=== PATIENT | female | born 1970 | race Caucasian/White ===

== ENCOUNTER 2022-01-24 09:38 | Emergency (ER) | payer OTHER, SELFPAY ==
[2022-01-24 09:45] VITALS: BP 119/72; PULSE 72; RESP 14; TEMP 36.1; O2SAT 98
[2022-01-24 09:58] VITALS: BP 119/72; PULSE 72; RESP 14; TEMP 36.1; O2SAT 98
--- NOTE | 2022-01-24 10:04 | ED.GENADULT ---
HPI - General Adult General Chief complaint: Urogenital-Female Stated complaint: Urinary Problem Source: patient Mode of arrival: ambulatory Limitations: no limitations History of Present Illness HPI narrative: Patient presents for evaluation of urinary symptoms for the last 2 days. Symptoms include dysuria, urinary frequency, urgency, hematuria, suprapubic pain and left flank pain. She states left flank pain that is mild and feels like a dull ache. She had some nausea but no vomiting. No objective fever or chills but did have the sensation that she felt warm two days ago. She has been taking Azo OTC. No additional complaints or concerns. Related Data Home Medications Medication Instructions Recorded Confirmed ramipril 5 mg capsule (Altace) 5 mg PO DAILY 09/08/20 01/24/22 spironolactone 100 mg tablet 100 mg PO DAILY 09/08/20 01/24/22 (Aldactone) metoprolol succinate 25 mg 12.5 mg PO DAILY 01/24/22 01/24/22 tablet,extended release 24 hr Allergies Allergy/AdvReac Type Severity Reaction Status Date / Time codeine Allergy Unknown sensitivity Verified 01/24/22 09:56 erythromycin base Allergy Unknown Rash Verified 01/24/22 09:56 Review of Systems Review of Systems: CONSTITUTIONAL: Denies fever, chills, or sweats. EYES: Denies visual changes, redness, or discharge. ENT: Denies rhinorrhea, congestion, sore throat, or otalgia. CARDIOVASCULAR: Denies chest pain, palpitations, or edema. RESPIRATORY: Denies cough or dyspnea. GASTROINTESTINAL: Reports suprapubic pain and recent nausea. Denies vomiting, or diarrhea. GENITOURINARY: Reports dysuria, hematuria, urinary frequency, and urgency BACK: Reports left flank pain SKIN: Denies rash or itching. MUSCULOSKELETAL: Denies back pain, joint pain, or myalgia. NEUROLOGIC: Denies headache, numbness, dizziness, or weakness. PSYCHIATRIC: Denies anxiety or depression. [facility] Past Medical History Medical History Interstitial cystitis Family History Family History Father Diabetes mellitus Sibling Depression Mother Alzheimer disease Other Family history of cardiovascular disease Family history of malignant neoplasm of breast Hypertension Social History Social History Alcohol intake: current Living arrangements: with family Gender identity (if verbalized by the patient): Female Spiritual care concerns: No Exam Narrative: GENERAL: Well-appearing, well-nourished, and in no acute distress. HEAD: Normocephalic, atraumatic. EYES: PERRLA and EOMI. ENT: Nares clear, no rhinorrhea or epistaxis. Mucous membranes moist. Oropharynx without tonsillar hypertrophy exudate or other lesions. Bilateral TMs pearly rodriguez nonbulging NECK: Supple. No adenopathy or masses. No carotid bruits or JVD CHEST: Clear to auscultation. No respiratory distress. No wheezes rales or rhonchi HEART: Regular rate and rhythm. No murmur heard. Normal peripheral pulses. ABDOMEN: Soft, nontender, nondistended, normal active bowel sounds. BACK: No CVA tenderness EXTREMITIES: Normal range of motion. No edema. SKIN: Warm, dry, no rash. NEURO: No focal deficits. Alert and oriented x3. PSYCH: Normal mood and affect. Course Course Emergency Course: This is a 51-year-old female with interstitial cystitis who presented for evaluation of urinary symptoms. She is nitrite positive. Will tx with macrobid. Will send urine for culture. She should follow up outpatient for further evaluation and treatment and return for worsening symptoms. Pt in agreement with plan of care. Level of Care: Express Care Visit Vital Signs Vital signs: Vital Signs Temperature 36.1 C L 01/24/22 09:45 Pulse Rate 72 01/24/22 09:45 Respiratory Rate 14 01/24/22 09:45 Blood Pressure 119/72 01/24/22 09:45 Pulse Oximetry 98 08/1
== END 2022-01-24 10:08 | disposition home or self-care (01) ==
PROVIDERS: Emergency Provider Nurse Practitioner; PCP Family Medicine
DX: N39.0 Urinary tract infection, site not specified (principal)
CPT/HCPCS: 81003; 87077; 87086; 87186; 99213; G0463

== ENCOUNTER 2022-04-11 11:48 | Emergency (ER) | payer OTHER, SELFPAY ==
[2022-04-11 11:55] VITALS: BP 104/60; PULSE 76; RESP 16; TEMP 36.7; O2SAT 98
--- NOTE | 2022-04-11 12:21 | ED.FEMALEGU ---
HPI - Female Genitourinary General Chief complaint: Urogenital-Female Stated complaint: Urinary Problem Time Seen by Provider: 04/11/22 12:10 Source: patient, RN notes reviewed and old records reviewed Mode of arrival: ambulatory Limitations: no limitations History of Present Illness HPI Narrative: 51-year-old female who presents to Express Care with pain with urination, frequency and urgency with painful since . Patient reports that she had some spasm type of sensation in her back her lower perineal area. Patient has taken azo with last dose around midnight last night Patient has not had any fevers, chills or sweats, has voiced some nausea with no diarrhea or vomiting, Patient denies any sharp pain in her back or over bladder regions. Patient reports that she has increased her water intake. Patient denies any concern for STD exposure denies any vaginal discharge or itching. MD elicited complaint: dysuria Pertinent past history: interstitial cystits Onset (ago): day(s) (4) Location of symptoms: perineum, suprapubic and low back Related Data Home Medications Medication Instructions Recorded Confirmed ramipril 5 mg capsule (Altace) 5 mg PO DAILY 09/08/20 04/11/22 spironolactone 100 mg tablet 100 mg PO DAILY 09/08/20 04/11/22 (Aldactone) metoprolol succinate 25 mg 12.5 mg PO DAILY 01/24/22 04/11/22 tablet,extended release 24 hr minocycline 100 mg capsule 100 mg PO DAILY 04/11/22 04/11/22 Allergies Allergy/AdvReac Type Severity Reaction Status Date / Time codeine Allergy Unknown sensitivity Verified 04/11/22 11:59 erythromycin base Allergy Unknown Rash Verified 04/11/22 11:59 Review of Systems Review of Systems: CONSTITUTIONAL: Denies fever, chills, or sweats. CARDIOVASCULAR: Denies chest pain, palpitations, or edema. RESPIRATORY: Denies cough or dyspnea. GASTROINTESTINAL: Denies abdominal pain, nausea, vomiting, or diarrhea. GENITOURINARY: Reports dysuria, frequency, urgency. Denies flank pain or hematuria. SKIN: Denies rash or itching. MUSCULOSKELETAL: Denies back pain or myalgia. Denies CVA tenderness reports some lower back pain NEUROLOGIC: Denies headache All systems reviewed & are unremarkable except as noted in HPI and below PMFSH Past Medical History Medical History Interstitial cystitis Family History Family History Father Diabetes mellitus Sibling Depression Mother Alzheimer disease Other Family history of cardiovascular disease Family history of malignant neoplasm of breast Hypertension Social History Social History (Updated 02/08/22 @ 14:[address] [facility]) Smoking status: Never smoker Alcohol intake: current Gender identity (if verbalized by the patient): Female Spiritual care concerns: No Comments At time of signature, agree with nursing past medical, surgical, social and family history. There is no relevant family history pertinent to the presenting complaint Exam Narrative: GENERAL: Well-appearing, well-nourished, and in no acute distress. HEAD: Normocephalic, atraumatic. NECK: Supple. no lymphadenopathy CHEST: Clear to auscultation. No respiratory distress.SA2 98% on room air HEART: Regular rate and rhythm. No murmur heard. Normal peripheral pulses. ABDOMEN: Soft, nontender, nondistended, normal active bowel sounds. No CVA tenderness EXTREMITIES: Normal range of motion. No edema. SKIN: Warm, dry, no rash. NEURO: No focal deficits. Alert and oriented x3. Course Course Emergency Course: Patient is aware of diagnosis, understands and agrees to treatment plan.? Anticipatory guidance given.? Patient agrees to follow-up as directed and is aware of reasons to seek care at the emergency department. Portions of this record may have been created with voice recognition software Level of Care: Express Care Visit Vital Signs Vital signs: Izzy
== END 2022-04-11 12:45 | disposition home or self-care (01) ==
PROVIDERS: Emergency Provider Registered Nurse; PCP Family Medicine
DX: N39.0 Urinary tract infection, site not specified (principal)
CPT/HCPCS: 81003; 87077; 87086; 87186; 99213; G0463

== ENCOUNTER 2022-09-25 17:48 | Emergency (ER) | payer OTHER, SELFPAY ==
--- NOTE | 2022-09-25 18:06 | ED.FEMALEGU ---
HPI - Female Genitourinary General Stated complaint: Urinary Problem Time Seen by Provider: 09/25/22 18:06 History of Present Illness HPI Narrative: Patient presents with urinary tracts is bone infection signs. Patient has burning with urination hello suprapubic pain and low back pain. Patient denies any flank pain and no gross hematuria. Patient states she has frequent urinary tract infections but none that have come on this fast in the severe. Patient denies any fever. Patient denies any pelvic pain and no abdominal pain and no vaginal discharge no concern for STDs. Related Data Home Medications Medication Instructions Recorded Confirmed ramipril 5 mg capsule (Altace) 5 mg PO DAILY 09/08/20 09/25/22 spironolactone 100 mg tablet 100 mg PO DAILY 09/08/20 09/25/22 (Aldactone) metoprolol succinate 25 mg 12.5 mg PO DAILY 01/24/22 09/25/22 tablet,extended release 24 hr Allergies Allergy/AdvReac Type Severity Reaction Status Date / Time codeine Allergy Unknown sensitivity Verified 09/25/22 17:58 erythromycin base Allergy Unknown Rash Verified 09/25/22 17:58 Review of Systems Review of Systems: CONSTITUTIONAL: Denies fever, chills, or sweats. EYES: Denies visual changes, redness, or discharge. ENT: Denies rhinorrhea, congestion, sore throat, or otalgia. CARDIOVASCULAR: Denies chest pain, palpitations, or edema. RESPIRATORY: Denies cough or dyspnea. GASTROINTESTINAL: Denies abdominal pain, nausea, vomiting, or diarrhea. GENITOURINARY: Denies dysuria or hematuria. SKIN: Denies rash or itching. MUSCULOSKELETAL: Denies back pain, joint pain, or myalgia. NEUROLOGIC: Denies headache, numbness, or weakness. PSYCHIATRIC: Denies anxiety or depression. [facility] Past Medical History Medical History Interstitial cystitis Family History Family History Father Diabetes mellitus Sibling Depression Mother Alzheimer disease Other Family history of cardiovascular disease Family history of malignant neoplasm of breast Hypertension Social History Social History (Updated 02/08/22 @ 14:[address] [facility]) Smoking status: Never smoker Alcohol intake: current Living arrangements: with family Gender identity (if verbalized by the patient): Female Spiritual care concerns: No Comments At time of signature, agree with nursing past medical, surgical, social and family history. There is no relevant family history pertinent to the presenting complaint Exam Narrative: GENERAL: Well-appearing, well-nourished, and in no acute distress. HEAD: Normocephalic, atraumatic. EYES: PERRLA and EOMI. ENT: Nares clear, no rhinorrhea or epistaxis. Mucous membranes moist. NECK: Supple. CHEST: Clear to auscultation. No respiratory distress. HEART: Regular rate and rhythm. No murmur heard. Normal peripheral pulses. ABDOMEN: Soft, nontender, nondistended, normal active bowel sounds. No abdominal pain and no flank pain EXTREMITIES: Normal range of motion. No edema. SKIN: Warm, dry, no rash. NEURO: No focal deficits. Alert and oriented x3. Haughton Coma Scale Eye Opening: Spontaneous 4 Haughton Coma Scale Motor: Obeys Commands 6 [place]aught[place] Coma Scale Verbal: Oriented 5 Shobha Coma Scale Total 15 Course Course Level of Care: Express Care Visit Vital Signs Vital signs: Vital Signs Temperature 36.7 C 09/25/22 18:14 Pulse Rate 64 09/25/22 18:14 Respiratory Rate 18 09/25/22 18:14 Blood Pressure 127/76 09/25/22 18:14 Pulse Oximetry 100 09/25/22 18:14 Oxygen Delivery Room Air 09/25/22 18:14 Temperature 36.7 C 09/25/22 18:14 Pulse Rate 64 09/25/22 18:14 Respiratory Rate 18 09/25/22 18:14 Blood Pressure 127/76 09/25/22 18:14 Pulse Oximetry 100 09/25/22 18:14 Oxygen Delivery Room Air 09/25/22 18:14 MDM - Female Genitourinary Differential Diagnosis Differenti
[2022-09-25 18:14] VITALS: BP 127/76; PULSE 64; RESP 18; TEMP 36.7; O2SAT 100
[2022-09-25 18:18] VITALS: BP 127/76; PULSE 64; RESP 18; TEMP 36.7; O2SAT 100
== END 2022-09-25 18:10 | disposition home or self-care (01) ==
PROVIDERS: Emergency Provider Nurse Practitioner Family; PCP Family Medicine
DX: N39.0 Urinary tract infection, site not specified (principal)
CPT/HCPCS: 81003; 87086; 87088; 99213; G0463